=== PATIENT | male | born 1960 | race African-American/Black ===

== ENCOUNTER 2019-05-31 21:12 | Emergency (ER) | payer OTHER ==
[~2019-05-31] VITALS: Ht 185.4 cm; Wt 90.7 kg
--- NOTE | 2019-05-31 21:26 | NUR ---
BIBS FOR C/O NAUSEA THE WHOLE DAY. PT JUST FLEW FROM [place] TO [place], AND UNSURE IF HE IS BEEN NAUSEOUS PRIOR TO THE FLIGHT. - ACTIVE VOMITING AT THIS TIME. PLACED ON A MONITOR ,
--- NOTE | 2019-05-31 21:37 | NUR ---
GLORIA MARMOLEJO PAC AT THE BED SIDE
[2019-05-31] MEDS ORDERED: ONDANSETRON 4 MG TAB.RAPDIS ONE ×2 (21:56→23:11)
[2019-05-31] MEDS ORDERED: ONDANSETRON 4 MG TAB.RAPDIS SL ONE ×2 (22:00→23:30)
[2019-05-31 22:11] LABS: BASOPHILS # (AUTO) 0.2 /CMM (0.0-0.2); BASOPHILS % (AUTO) 1.9 % (0.0-2.0); EOSINOPHILS % (AUTO) 3.5 % (0.0-6.0); HEMATOCRIT 43 % (39-51); HEMOGLOBIN 14.2 g/dL (13.5-17.5); LYMPHOCYTES % (AUTO) 8.5 % (20.0-44.0); MEAN CORPUSCULAR HGB CONC 33 g/dl (31.0-36.0); MEAN CORPUSCULAR VOLUME 88 fL (80-96); MONOCYTES # (AUTO) 0.8 /CMM (0.1-1.30); MONOCYTES % (AUTO) 6.1 % (2.0-12.0); NEUTROPHILS # (AUTO) 9.9 /CMM (1.8-8.9); PLATELET COUNT (AUTO) 314 /CMM (150-450); WHITE BLOOD COUNT (AUTO) 12.3 K/uL (4.3-11.0)
[2019-05-31 22:14] LABS: ALBUMIN 3.5 g/dL (3.4-5.0); BILIRUBIN,DIRECT 0.2 mg/dL (0.0-0.2); BILIRUBIN,TOTAL 0.8 mg/dL (0.2-1.0); CALCIUM, SERUM 9.6 mg/dL (8.5-10.1); POTASSIUM 4.3 mmol/L (3.5-5.1)
--- NOTE | 2019-05-31 23:35 | NUR ---
Patient discharged to home in stable condition. Rx and Written and verbal after care instructions given. Patient verbalizes understanding of instruction.
[2019-06-01 00:53] VITALS: BP 18/87
== END 2019-05-31 23:35 | disposition home or self-care (01) ==
LOC: ER 21:17
DX: R11.2 Nausea with vomiting, unspecified (principal); I10 Essential (primary) hypertension; R00.0 Tachycardia, unspecified; Z88.8 Allergy status to other drugs, medicaments and biological substances
CPT/HCPCS: 36415; 80048; 80076; 83690; 85025; 93005; 99284; Q0162 ×2